=== PATIENT | male | born 1980 | race African-American/Black ===

== ENCOUNTER 2018-10-15 17:53 | Emergency (ER) | payer SELFPAY ==
--- NOTE | 2018-10-15 18:36 | ER ---
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 Transition of care: patient was not received from another setting of care. Complicating Factors: There are no complicating factors for this patient. Onset of symptoms was October 15, 2018. Risk Assessment: Do you want to hurt yourself or someone else? Patient reports no desire to harm self or others. Initial Sepsis Screen: Does the patient meet any 2 criteria? No. Patient's initial sepsis screen is negative. Does the patient have a suspected source of infection? No. Patient's initial sepsis screen is negative. Care prior to arrival: None. 18:01 Method Of Arrival: Ambulatory 18:01 Acuity: XIOMY 4 sg Triage Assessment: 18:04 General: Behavior is calm, cooperative, appropriate for age. Pain: Complains of pain in sg right little finger. Injury Description: Laceration sustained to right little finger is contaminated, 0.5 to 2.5 cm long, was sustained 30-60 minutes ago. is bleeding a small amount. 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 - Social history:: Smoking status: Patient/guardian denies using tobacco, Patient/guardian denies using alcohol, street drugs, The patient lives with family. - Ebola Screening: : Patient negative for fever greater than or equal to 101.5 degrees Fahrenheit, and additional compatible Ebola Virus Disease symptoms Patient denies exposure to infectious person Patient denies travel to an Ebola-affected area in the 21 days before illness onset No symptoms or risks identified at this time. - Family history:: not pertinent. Screenin:50 Abuse screen: Denies threats or abuse. Denies injuries from another. Nutritional mg2 screening: No deficits noted. Tuberculosis screening: No symptoms or risk factors identified. Fall Risk None identified. Assessment: 18:47 General: Appears in no apparent distress. comfortable, Behavior is anxious, fussy. mg2 Pain: Complains of pain in right little finger. Neuro: Level of Consciousness is awake, alert, obeys commands, Oriented to person, place, time, situation. Cardiovascular: Capillary refill < 3 seconds Patient's skin is warm and dry. Respiratory: Airway is patent Respiratory effort is even, unlabored, Respiratory pattern is regular, symmetrical. GI: No signs and/or symptoms were reported involving the gastrointestinal system. : No signs and/or symptoms were reported regarding the genitourinary system. EENT: No signs and/or symptoms were reported regarding the EENT system. Derm: Skin is normal, Wound noted right little finger Wound is open and mildly bleeding. Musculoskeletal: Circulation, motion, and sensation intact. Capillary refill < 3 seconds. Injury Description: Laceration sustained to right little finger. 18:51 Reassessment: patient sustained a laceration with probable fracture and dislocation of mg2 the right little finger. patient was in a hurry to be seen by a hand surgeon and told him we don't have here so he left right away. dr yost spoke to the patient. Vital Signs: 18:04 BP 149 / 93; Pulse 92; Resp 17; Temp 97.7; Pulse Ox 98% on R/A; Weight 106.59 kg; sg Height 6 ft. 2 in. (187.96 cm); Pain 8/10; 18:04 Body Mass Index 30.17 (106.59 kg, 187.96 cm) sg ED Course: 17:54 Patient arrived in ED. rg4 18:03 Triage completed. sg 18:04 Arm band placed on. sg 18:13 Roxane Burton MD is Attending Physician. ma2 18:14 Germain Ramirez, ES is Primary Nurse. mg2 18:50 No provider procedures requiring assistance completed. Patient did not have IV access mg2 during this emergency room visit. Wound care: to laceration located on right little finger was cleaned with Betadine, irrigated with normal saline, dressed with 4X4s, Patient tolerated well. 18:51 Patient has correct armband on for positive identification. mg2 Administered Medications: No medications were administered Outcome: 18:53 AMA Left before signing form. mg2 18:53 Condition: stable 18:53 Instructed on discharge instructions. 18:53 Patient left the ED. mg2 Signatures: Tanvir Allred RN RN Swati Sharma rg4 Roxane Burton MD MD ma2 Germain Ramirez RN RN mg2
--- NOTE | 2018-10-15 18:36 | EDPHYS ---
Physician Documentation [facility] Name: Milo Rogel Age: 38 yrs Sex: Male : 1980 Arrival Date: 10/15/2018 Time: 17:54 Bed 28 Private MD: ED Physician Roxane Burton HPI: 10/15 18:28 This 38 yrs old Male presents to ER via Ambulatory with complaints of Laceration To ma2 Hand. 18:28 This 38 yrs old Male presents to ER via Ambulatory with complaints of Laceration To ma2 Hand. 18:28 The laceration(s) is(are) located on the left hand. Onset: The symptoms/episode ma2 began/occurred suddenly, 0.5 hour(s) ago. Associated signs and symptoms: Pertinent negatives: dizziness, loss of consciousness, numbness distal to injury. The patient has not experienced similar symptoms in the past. 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 - Social history:: Smoking status: Patient/guardian denies using tobacco, Patient/guardian denies using alcohol, street drugs, The patient lives with family. - Ebola Screening: : Patient negative for fever greater than or equal to 101.5 degrees Fahrenheit, and additional compatible Ebola Virus Disease symptoms Patient denies exposure to infectious person Patient denies travel to an Ebola-affected area in the 21 days before illness onset No symptoms or risks identified at this time. - Family history:: not pertinent. ROS: 18:28 Constitutional: Negative for fever, chills, and weight loss, Cardiovascular: Negative ma2 for chest pain, palpitations, and edema, Respiratory: Negative for shortness of breath, cough, wheezing, and pleuritic chest pain, Abdomen/GI: Negative for abdominal pain, nausea, diarrhea, and constipation, Neuro: Negative for headache, weakness, numbness, tingling, and seizure, Psych: Negative for depression, anxiety, suicide ideation, homicidal ideation, and hallucinations. 18:28 MS/extremity: Positive for contusion, decreased range of motion, deformity. 18:28 All other systems are negative. Exam: 18:28 Constitutional: This is a well developed, well nourished patient who is awake, alert, ma2 and in no acute distress. Chest/axilla: Normal chest wall appearance and motion. Nontender with no deformity. No lesions are appreciated. Cardiovascular: Regular rate and rhythm with a normal S1 and S2. No gallops, murmurs, or rubs. Normal PMI, no JVD. No pulse deficits. Respiratory: Lungs have equal breath sounds bilaterally, clear to auscultation and percussion. No rales, rhonchi or wheezes noted. No increased work of breathing, no retractions or nasal flaring. 18:28 Musculoskeletal/extremity: has partial amputation at middle phalanx of right little finger, after he accidently closed a door on it, this happened 30 min ago, his tdap is not up to date. Vital Signs: 18:04 BP 149 / 93; Pulse 92; Resp 17; Temp 97.7; Pulse Ox 98% on R/A; Weight 106.59 kg; sg Height 6 ft. 2 in. (187.96 cm); Pain 8/10; 18:04 Body Mass Index 30.17 (106.59 kg, 187.96 cm) sg MDM: 18:13 Patient medically screened. ma2 18:28 Differential diagnosis: superficial laceration, tendon injury, vascular injury, ma2 fracture. Data reviewed: vital signs, nurses notes. Counseling: I had a detailed discussion with the patient and/or guardian regarding: the historical points, exam findings, and any diagnostic results supporting the discharge/admit diagnosis, the presence of at least one elevated blood pressure reading (>120/80) during this emergency department visit, the need to transfer to another facility, i explained that we need to do xray and then likely transfer him to a hand surgeon in [place] and give him antibiotics and tdap, he would like to be seen by surgeon right away, i explained that no hand surgeon is available at our hospital it this time, he decided to leave [facility], does not have pain, decline tdap and abx. i explained risk of having infection and likelihood of losing his finger . Administered Medications: No medications were administered Disposition: 10/15/18 18:35 Patient has left against medical advice. 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 - Patients states they are going to Home. - Condition is Critical. Follow up: Emergency Department; When: Today; Reason: Continuance of care. - Problem is new. - Symptoms are unchanged. Signatures: Tanvir Allred RN RN Roxane Burton MD MD ma2 Germain Ramirez RN RN mg2 Corrections: (The following items were deleted from the chart) 18:53 18:35 10/15/2018 18:35 Patients has left against medical advice. Impression: Partial mg2 traumatic transphalangeal amputation of right little finger. Patient states they are going to Home. Condition is Critical. Follow up: Emergency Department; When: Today; Reason: Continuance of care. Problem is new. Symptoms are unchanged. ma2
[2018-10-15] MEDS ORDERED: TETANUS & DIPHTHERIA TOX,ADULT 0.5 ML VIAL ONE (18:39)
[2018-10-15] MEDS ORDERED: LIDOCAINE 1% MPF 5 ML VIAL ONE (18:40)
== END 2018-10-15 18:53 | disposition left against medical advice (07) ==
LOC: ER 17:53
DX: S68.626A Partial traumatic transphalangeal amputation of right little finger, initial encounter (principal)
CPT/HCPCS: 90714; 99283